=== PATIENT | female | born 1975 | race Caucasian/White ===

== ENCOUNTER → 2021-12-20 | Outpatient (CLI) | payer OTHER ==
[~2021-12-20] MED LIST: AMOXICILLIN 50500 MG PO; AMOXICILLIN 8751 TAB PO; LEVAQUIN 5500 MG/TA1 PO; LORTAB 5/500 501 TAB PO; MEDROL 4MG DOSPA4 MG PO; NO HOME MEDICATIONS; NORCO 325 MG-51 TAB PO; PHENERGAN W/CO120 M1 PO; PREDNISONE20 MG PO; PRINIVIL20 MG PO; XOPENEX 1.1.25 MG/3 IH; ZITHROMAX Z PA250 MG PO
== END ==
LOC: MC.RAD 08:00
DX: N64.4 Mastodynia (principal); R59.0 Localized enlarged lymph nodes

== ENCOUNTER → 2021-12-28 | Outpatient (CLI) | payer OTHER | LOC: MC.RAD 08:00 | DX: R59.0 Localized enlarged lymph nodes (principal); N64.4 Mastodynia ==